=== PATIENT | male | born 1940 | race African-American/Black ===

== ENCOUNTER 2016-02-26 08:41 | Emergency (ER) | payer MEDICARE ==
[~2016-02-26] VITALS: Ht 167.6 cm; Wt 67.6 kg
[~2016-02-26 08:41] MED LIST: AMLO10TA2 PO; ASPI81TA9 PO; ATOR20TA58 PO; CARV6.252 PO; CLOP75TA PO; FURO-68 PO; LISI-334 PO; LISI-338 PO; PANT40TA5 PO; TICA90TA PO
--- NOTE | 2016-02-26 09:07 | PHYS DOC ---
Past Medical History Past Medical History: Arthritis, Hypertension, [place] Additional Past Medical Histor: glaucoma, cardiac stents x9 Past Surgical History: Other Additional Past Surgical Histo: heart stents, heart cath, multiple cardiac stents Alcohol Use: None Drug Use: None Adult General Chief Complaint Chief Complaint: COUGH HPI HPI Patient is a 75 year old male who presents with cough. Patient reports he started having cough during recent admission to the hospital in January during which he received multiple coronary stents. He had started on lisinopril at that time. Since leaving the hospital he has had continued cough. He denies SOB or chest discomfort. No fever. His spoke with Dr. David last night, who instructed him to stop taking lisinopril and come into ED for evaluation. He has not taken today's dose of lisinopril. No other acute complaints. Review of Systems Review of Systems Constitutional: Denies fever or chills Eyes: Denies change in visual acuity or eye pain HENT: Denies nasal congestion or sore throat Respiratory: Cough. Denies shortness of breath Cardiovascular: Denies chest pain GI: Denies abdominal pain, nausea, vomiting, bloody stools or diarrhea : Denies dysuria or hematuria Musculoskeletal: Denies back pain or joint pain Integument: Denies rash or skin lesions Neurologic: Denies headache, focal weakness or sensory changes Current Medications Current Medications Current Medications Medications (Trade) Dose Ordered Sig/Wali Start Time Stop Time Status Last Admin Dose Admin Benzonatate (Tessalon Perle) 100 mg 1X ONCE 02/26/16 09:15 02/26/16 09:16 DC 02/26/16 09:26 100 MG Allergies Allergies Allergies Coded Allergies Type Severity Reaction Last Updated Verified No Known Drug Allergies 02/10/16 No Physical Exam Physical Exam Constitutional: Well developed, well nourished, no acute distress, non-toxic appearance HENT: Normocephalic, atraumatic, bilateral external ears normal Eyes: EOMI, conjunctiva normal, no discharge Neck: Normal range of motion, no stridor Cardiovascular: Heart rate normal, regular rhythm, no murmur Lungs & Thorax: Bilateral breath sounds clear to auscultation Abdomen: Bowel sounds normal, soft, non-distended, no TTP Skin: Warm, dry, no erythema, no rash Extremities: No obvious deformity, no edema Neurologic: Alert and oriented X 3, no gross deficits noted Current Patient Data Vital Signs Vital Signs Date Time Temp Pulse Resp B/P Pulse Ox O2 Delivery O2 Flow Rate FiO2 02/26/16 08:54 98.5 74 16 184/104 97 Room Air 98.5 Lab Values Laboratory Tests Test 02/26/16 09:15 White Blood Count 6.8x10^3/uL (4.0-11.0) Red Blood Count 3.94x10^6/uL (4.30-5.70) L Hemoglobin 11.3g/dL (13.0-17.5) L Hematocrit 34.1% (39.0-53.0) L Mean Corpuscular Volume 87fL (79-100) Mean Corpuscular Hemoglobin 29pg (25-35) Mean Corpuscular Hemoglobin Concent 33g/dL (31-37) Red Cell Distribution Width 13.6% (11.5-14.5) Platelet Count 399x10^3/uL (140-400) Neutrophils (%) (Auto) 70% (31-73) Lymphocytes (%) (Auto) 11% (24-48) L Monocytes (%) (Auto) 15% (0-9) H Eosinophils (%) (Auto) 3% (0-3) Basophils (%) (Auto) 1% (0-3) Neutrophils # (Auto) 4.7x10^3uL (1.8-7.7) Lymphocytes # (Auto) 0.7x10^3/uL (1.0-4.8) L Monocytes # (Auto) 1.0x10^3/uL (0.0-1.1) Eosinophils # (Auto) 0.2x10^3/uL (0.0-0.7) Basophils # (Auto) 0.1x10^3/uL (0.0-0.2) Sodium Level 141mmol/L (136-145) Potassium Level 4.5mmol/L (3.5-5.1) Chloride Level 105mmol/L (98-107) Carbon Dioxide Level 28mmol/L (21-32) Anion Gap 8 (6-14) Blood Urea Nitrogen 10mg/dL (8-26) Creatinine 1.7mg/dL (0.7-1.3) H Estimated GFR (Cockcroft-Gault) 47.5 Glucose Level 108mg/dL (70-99) H Calcium Level 9.0mg/dL (8.5-10.1) UL-Zgv-Q-Type Natriuretic Peptide 6365pg/mL (0-449) H Laboratory Tests 02/26/16 09:15 Laboratory Tests 02/26/16 09:15 EKG EKG EKG (my read): sinus rhythm, rate 73, LAD, TWI in leads I/aVL/V6, ST changes in precordial leads, similar in morphology to EKG on 02/11/16 Radiology/Procedures Radiology/Procedures CXR: Impression: Minimal atelectasis in the lung bases with suspected tiny right pleural effusion. Course & Med Decision Making Course & Med Decision Making Pertinent Labs and Imaging studies reviewed. (See chart for details) Patient is 75 year old male who presents with cough. No CP or SOB. Suspect cough related to initiation of YAQUELIN inhibitor during prior hospitalization. Will check labs, CXR to screen for other etiology. EKG with some ischemic changes, but these were present on prior EKG and with lack of CP or SOB these are not particularly concerning. Labs notable for elevated BNP, however patient is not clinically fluid overloaded and does not have overt pulmonary edema on CXR, so will simply treat with continued PO lasix as he has been taking. CXR results as above. I spoke with Dr. David regarding this patient and his results; ok to send patient home, will have him stop lisinopril and will provide rx for losartan as alternative. Discussed with patient and family who are agreeable with plan. Dr. David's office will also call patient on Saturday to see how he is doing. Will also provide patient with rx for tessalon per patient request. Discharged with prescriptions, instructions for follow up, return precautions. Dragon Disclaimer Dragon Disclaimer This electronic medical record was generated, in whole or in part, using a voice recognition dictation system. Departure Departure Impression: Primary Impression: Cough due to YAQUELIN inhibitor Disposition: HOME, SELF-CARE Condition: STABLE Referrals: JOANNE ZIEGLER MD (PCP) JORGE DAVID MD Patient Instructions: Cough, Adult Additional Instructions: Thank you for allowing us to provide care today in the Emergency Department. Take the provided medication as directed. Schedule a follow up appointment with your primary care doctor and with your construction foreman. Return promptly to the Emergency Department if you develop any new or concerning symptoms. Scripts Losartan Potassium 25 Mg [id number] Mg PO DAILY #30 TAB Prov:MERRICK TELLO MD 02/26/16 Benzonatate (Tessalon Perle)100 Mg [id number] Mg PO TID PRN COUGH #10 CAP Prov:MERRICK TELLO MD 02/26/16 MERRICK TELLO MD Feb 26, 2016 09:07
[2016-02-26] MEDS ORDERED: BENZONATATE 100 MG CAPSULE. PO ONE (09:15)
[2016-02-26 09:25] LABS: BASO # 0.1 x10^3/uL (0.0-0.2); BASO % 1 % (0-3); EOS % 3 % (0-3); HEMATOCRIT 34.1 % (39.0-53.0); HEMOGLOBIN 11.3 g/dL (13.0-17.5); LYMPH # 0.7 x10^3/uL (1.0-4.8); LYMPH % 11 % (24-48); MEAN CORPUSCULAR HEMOGLOBIN 29 pg (25-35); MEAN CORPUSCULAR HGB CONC 33 g/dL (31-37); MEAN CORPUSCULAR VOLUME 87 fL (79-100); MONO % 15 % (0-9); NEUT % 70 % (31-73); PLATELET COUNT 399 x10^3/uL (140-400); RED BLOOD COUNT 3.94 x10^6/uL (4.30-5.70); RED CELL DISTRIBUTION WIDTH 13.6 % (11.5-14.5); WHITE BLOOD COUNT 6.8 x10^3/uL (4.0-11.0)
[2016-02-26 09:34] LABS: CREATININE 1.7 mg/dL (0.7-1.3); GFR 47.5; POTASSIUM 4.5 mmol/L (3.5-5.1)
--- NOTE | 2016-02-26 09:35 | RAD ---
Indication: Cough and hypertension. Technique: Two-view chest radiograph was obtained. Comparison is from February 19, 2016. Findings: There is minimal atelectasis in the lung bases and there is probably a tiny pleural effusion on the right. The heart is upper limits of normal in size although there is no obvious heart failure. There are degenerative changes in the spine. Impression: Minimal atelectasis in the lung bases with suspected tiny right pleural effusion.
[2016-02-26] MEDS ORDERED: BENZ100C PO (10:05)
[2016-02-26] MEDS ORDERED: LOSA25TA4 PO (10:05)
[2016-02-26 10:16] VITALS: BP 185/104
--- NOTE | 2016-02-26 11:41 | EKG ---
[facility] [address] [place] [address] Test Date: 2016-02-26 Test Time: 08:52:49 Pat Name: MOSHE BOWMAN Department: Room: Gender: M [employer] Reclaimer: : 1940 Requested By: MERRICK TELLO Order Number: [id number] Reading MD: Measurements Intervals [place] Rate: 73 P: 70 TX: 124 QRS: -8 QRSD: 78 T: 149 QT: 438 QTc: 487 Interpretive Statements SINUS RHYTHM QRS(T) CONTOUR ABNORMALITY CONSISTENT WITH ANTEROSEPTAL INFARCT AGE UNDETERMINED T ABNORMALITY IN ANTERIOR LEADS LATERAL LEADS ABNORMAL ECG RI6.01 No previous ECG available for comparison
== END 2016-02-26 10:20 | disposition home or self-care (01) ==
LOC: ER 08:41
DX: R05 Cough (principal); T46.4X5A Adverse effect of angiotensin-converting-enzyme inhibitors, initial encounter; I10 Essential (primary) hypertension; I25.2 Old myocardial infarction; H40.9 Unspecified glaucoma; Z95.5 Presence of coronary angioplasty implant and graft; Y92.89 Other specified places as the place of occurrence of the external cause
CPT/HCPCS: 36415; 71020; 80048; 83880; 85027; 93005; 99285-25